=== PATIENT | female | born 1955 | race Two or more races ===

== ENCOUNTER 2016-09-21 00:36 | Emergency (ER) | payer MEDICAID, OTHER ==
[~2016-09-21] VITALS: Ht 149.9 cm; Wt 90.7 kg
[~2016-09-21 00:36] MED LIST: ACETAMINOPHEN650 M2 ORAL; ADVAIR 500-501 EACH INH; ALBUTEROL2.5 MG/3 M INH; AZITHROMYCIN250 MG ORAL; CELEBREX200 MG ORAL; LEVAQUIN500 MG ORAL; LYRICA50 MG ORAL; MEDROL DOSEPAK4 MG ORAL; MONTELUKAST SOD10 MG ORAL; PREDNISONE20 MG ORAL; THEOPHYLLINE A100 MG ORAL; ZETIA10 MG ORAL
[2016-09-21 00:54] VITALS: BP 144/72
[2016-09-21] MEDS ORDERED: Ketorolac 30mg Inj IV ONE (01:15)
[2016-09-21 01:50] LABS: BASOPHILS % (AUTO) 1.1 % (0.0-2.0); EOSINOPHILS % (AUTO) 9.7 % (0.0-3.0); LYMPHOCYTES % (AUTO) 29.4 % (20.0-45.0); MEAN CORPUSCULAR HEMOGLOBIN 29.2 PG (27.0-31.0); MEAN CORPUSCULAR HGB CONC 31.3 G/DL (32.0-36.0); MEAN CORPUSCULAR VOLUME 93 FL (80-99); MEAN PLATELET VOLUME 8.6 FL (6.5-10.1); MONOCYTES % (AUTO) 5.3 % (1.0-10.0); NEUTROPHILS % (AUTO) 54.6 % (45.0-75.0); PLATELET COUNT 252 K/UL (150-450); RED BLOOD COUNT 4.55 M/UL (4.20-5.40); RED CELL DISTRIBUTION WIDTH 12.9 % (11.6-14.8)
[2016-09-21] MEDS ORDERED: Morphine Sulfate 4mg/ml Inj IVP ONE (02:00)
[2016-09-21 02:18] LABS: ALANINE AMINOTRANSFERASE 21 U/L (3-33); ALBUMIN/GLOBULIN RATIO 1.3 (1.0-2.7); ANION GAP 12 (5-15); ASPARTATE AMINO TRANSFERASE 18 U/L (5-40); CALCIUM 9.3 mg/dL (8.6-10.2); CARBON DIOXIDE 24 mEQ/L (20-30); CHLORIDE 107 mEQ/L (98-107); CREATININE 0.7 mg/dL (0.5-0.9); GLOMERULAR FILTRATION RATE > 60 mL/min (>60); HEMOLYSIS 2; POTASSIUM 3.5 mEQ/L (3.4-4.9); SODIUM 143 mEQ/L (135-145); TOTAL PROTEIN 6.8 g/dL (6.6-8.7)
[2016-09-21 02:20] LABS: TROPONIN I < 0.30 ng/mL (<=0.30)
[2016-09-21 02:29] LABS: CKMB 1.9 ng/mL (< 3.8)
[2016-09-21] MEDS ORDERED: HYDROCODON-ACE1 EA15 ORAL (02:57)
--- NOTE | 2016-09-21 02:57 | Emergency Room Report ---
History of Present Illness General Chief Complaint: Chest Pain Source: Patient Present Illness HPI Is a pleasant 61-year-old female with history hypertension. She presents with chief complaint of left-sided chest pain ongoing for last few hours. Sharp in nature. No nausea no vomiting. Radiate from the back to the front along the breast. No fever or chills. No nausea no vomiting. No rash. Pain is 9/10. Worse with certain movement. Allergies: Coded Allergies: CODEINE (Unverified Allergy, Intermediate, 03/18/14) mouth and face get numb. Patient History Past Medical History: see triage record, old chart reviewed, HTN Past Surgical History: other Pertinent Family History: none Social History: Denies: smoking Now: No Immunizations: other Reviewed Nursing Documentation: PMH: Agreed, PSxH: Agreed Nursing Documentation-PMH Past Medical History: No History, Except For Hx Cardiac Problems: No Hx Hypertension: Yes Hx Asthma: Yes Hx COPD: Yes Hx Cancer: No Hx Gastrointestinal Problems: No Hx Neurological Problems: No Review of Systems Eye: Denies: blurred vision, eye pain ENT: Denies: ear pain, nose congestion, throat swelling Respiratory: Denies: cough, shortness of breath Cardiovascular: Reports: chest pain, Denies: palpitations Gastrointestinal: Denies: abdominal pain, diarrhea, nausea, vomiting Musculoskeletal: Denies: back pain, joint pain Skin: Denies: rash Neurological: Denies: headache, numbness Endocrine: Denies: increased thirst, increased urine Hematologic/Lymphatic: Denies: easy bruising All Other Systems: negative except mentioned in HPI Physical Exam Vital Signs Date Time Temp Pulse Resp B/P Pulse Ox O2 Delivery O2 Flow Rate FiO2 09/21/16 00:48 98.2 73 20 144/72 99 Room Air vitals unremarkable Sp02 EP Interpretation: reviewed, normal General Appearance: well appearing, no apparent distress, alert Head: normocephalic, atraumatic Eyes: bilateral eye EOMI, bilateral eye PERRL ENT: hearing grossly normal, normal pharynx Neck: full range of motion, supple, no meningismus Respiratory: chest non-tender, lungs clear, normal breath sounds Cardiovascular #1: regular rate, rhythm, no murmur Gastrointestinal: normal bowel sounds, non tender, no mass, no organomegaly, no bruit, non-distended Musculoskeletal: back normal, gait/station normal, normal range of motion Psychiatric: mood/affect normal Skin: warm/dry Medical Decision Making Diagnostic Impression: Primary Impression: Chest pain Qualified Codes: R07.9 - Chest pain, unspecified ER Course patient presents with chest pain. I did not see any rash indicate shingles. But this could be early in the process. no evidence of ACS, PE, dissection to name a few. Patient is asymptomatic now. We'll discharge home. Lab Results Impression labs normal EKG Diagnostic Results EKG Time: 02:56 Rate: normal Rhythm: NSR ST Segments: no acute changes Rhythm Strip Diag. Results Rhythm Strip Time: 02:56 EP Interpretation: yes Rate: 70 Chest X-Ray Diagnostic Results Chest X-Ray Diagnostic Results : Chest X-Ray Ordered: Yes # of Views/Limited/Complete: 1 View EP Interpretation: Yes Interpretation: no consolidation, no effusion, no pneumothorax, no acute cardiopulmonary disease Indication: Chest Pain Impression: No acute disease Interpreting ER Provider: Electronically signed by Mohan Mata MD Last Vital Signs Date Time Temp Pulse Resp B/P Pulse Ox O2 Delivery O2 Flow Rate FiO2 09/21/16 00:54 98.0 88 20 144/72 99 Room Air Status: improved Disposition: HOME, SELF-CARE Condition: Stable Scripts Hydrocodone/Acetaminophen 5-325* (HYDROCODONE/ACETAMINOPHEN 5-325*) 1 Each Tablet 1 TAB ORAL Q6H Y for For Pain, #15 TAB 0 Refills Prov: MOHAN MATA M.D. 09/21/16 Referrals: [facility],REFERRING (PCP) Patient Instructions: Nonspecific Chest Pain Additional Instructions: Followup with your DrWendy in 2 to 3 days. Return if symptom worsen. If not better , you may be stress test. MOHAN MATA M.D. Sep 21, 2016 02:57
[2016-09-21 03:07] VITALS: BP 132/79
--- NOTE | 2016-09-21 11:00 | Diagnostic Imaging Report ---
Indication: Dyspnea Comparison: 02/25/15 A single view chest radiograph was obtained. Findings: Cardiomediastinal appearance is within normal limits for age. Pulmonary vascularity is appropriate. The diaphragmatic contour is smooth and costophrenic angles are sharp. No pleural effusions are identified. The bones are osteopenic. Impression: No acute findings
--- NOTE | 2016-09-22 11:16 | Cardiology Report ---
APPROVED REPORT EKG Measurement Heart [id number] Normal sinus rhythm Normal ECG
== END 2016-09-21 03:07 | disposition home or self-care (01) ==
LOC: EMR 01:10
DX: R07.89 Other chest pain (principal); I10 Essential (primary) hypertension; J44.9 Chronic obstructive pulmonary disease, unspecified
CPT/HCPCS: 36415; 71010; 80053; 82550; 82553; 84484; 85025; 93005; 96374; 96375; 99284; J1885; J2270; J2405